=== PATIENT | female | born 1965 | race Caucasian/White ===

== ENCOUNTER 2017-05-02 15:42 | Inpatient (IN) | payer MEDICAID, OTHER ==
[2017-05-02 15:55] VITALS: BMI 31.8
[2017-05-02] MEDS ORDERED: DiphenhydrAMINE 50 mg/ml Inj IVP STA (16:59)
[2017-05-02 17:15] LABS: BASO % 0.4 % (0.0-2.0); EOS # 0.2 K/uL (0.0-0.7); EOS % 2.8 % (0.0-4.0); HEMOGLOBIN 13.7 g/dL (12.0-16.0); LYMPH # 1.6 K/uL (1.0-4.3); LYMPH % 26.8 % (20.0-40.0); MEAN CORPUSCULAR HEMOGLOBIN 28.3 pg (27.0-31.0); MEAN CORPUSCULAR HGB CONC 32.6 g/dL (33.0-37.0); MEAN PLATELET VOLUME 9.7 fl (7.2-11.7); MONO # 0.4 K/uL (0.0-0.8); MONO % 6.4 % (0.0-10.0); NEUT # 3.7 K/uL (1.8-7.0); NEUT % 63.6 % (50.0-75.0); NRBC % 0.3 % (0.0-0.0); RBC 4.83 Mil/uL (3.80-5.20); RED CELL DISTRIBUTION WIDTH 14.4 % (11.5-14.5); WHITE BLOOD COUNT 5.8 K/uL (4.8-10.8)
[2017-05-02] MEDS ORDERED: DiphenhydrAMINE 50 mg/ml Inj ONE (17:25)
[2017-05-02 17:27] LABS: ALB/GLOB RATIO 1.1 (1.0-2.1); ALBUMIN 4.4 g/dL (3.5-5.0); ALT/SGPT 52 U/L (9-52); AST/SGOT 29 U/L (14-36); BLOOD UREA NITROGEN 18 mg/dl (7-17); CALCIUM 9.8 mg/dL (8.4-10.2); GFR AFRICAN-AMERICAN > 60; GFR NON-AFRICAN AMERICAN > 60
--- NOTE | 2017-05-02 17:32 | ED PDOC ---
HPI: Headache Time Seen by Provider: 05/02/17 16:06 Chief Complaint (Nursing): Headache Chief Complaint (Provider): Headache History Per: Patient History/Exam Limitations: no limitations Onset/Duration Of Symptoms: Days (x1 month), Worse Since Current Symptoms Are (Timing): Still Present Quality: Other (throbbing) Preceeding Symptoms: None Additional Complaint(s): 51 year old female with past medical history of pituitary resection presents to the emergency department complaining of headache x1 month. Patient states that the headache is worsening and is associated with fever, chills, bilateral arm paresthesias and shortness of breath. She reports that her pain is similar to when she was diagnosed with a pituitary tumor 2 years ago. Patient reports she had surgery at [facility] and has not experienced any symptoms since then. She further states that she has not followed up with with a neurosurgeon nor endocrine since a few months after her surgery was performed. PMD: [facility] Past Medical History Reviewed: Historical Data, Nursing Documentation, Vital Signs Vital Signs: Last Vital Signs Temp 98.3 F 05/02/17 15:55 Pulse 70 05/02/17 15:55 Resp 16 05/02/17 15:55 BP 150/88 05/02/17 15:55 Pulse Ox 100 05/02/17 15:55 - Medical History PMH: Diverticulitis, Gastritis Denies: HIV, Chronic Kidney Disease - Surgical History Other surgeries: pituitary resection - Family History Family History: States: Hypertension - Social History Current smoker - smoking cessation education provided: No Ex-Smoker (has not smoked in the last 12 months): No Alcohol: None Drugs: Denies - Home Medications Home Medications: Ambulatory Orders Medication Instructions Recorded No Known Home Med 05/02/17 - Allergies Allergies/Adverse Reactions: Allergies Allergy/AdvReac Type Severity Reaction Status Date / Time levofloxacin [From Levaquin] Allergy RASH Verified 09/12/15 09:37 Penicillins Allergy RASH Verified 09/12/15 09:37 Review of Systems ROS Statement: Except As Marked, All Systems Reviewed And Found Negative Constitutional: Positive for: Chills Cardiovascular: Positive for: Palpitations Respiratory: Positive for: Shortness of Breath (occasional) Gastrointestinal: Positive for: Nausea Neurological: Positive for: Headache, Other (bilateral arm paresthesias) Physical Exam - Reviewed Nursing Documentation Reviewed: Yes Vital Signs Reviewed: Yes - Physical Exam Appears: Positive for: Uncomfortable, In Acute Distress (mild painful) Head Exam: Positive for: ATRAUMATIC, NORMOCEPHALIC Skin: Positive for: Warm, Dry Eye Exam: Positive for: EOMI, PERRL, Conjunctival injection ENT: Negative for: Pharyngeal Erythema, Tonsillar Exudate Neck: Positive for: Painless ROM, Supple Cardiovascular/Chest: Positive for: Regular Rate, Rhythm. Negative for: Murmur Respiratory: Positive for: Normal Breath Sounds. Negative for: Wheezing Gastrointestinal/Abdominal: Positive for: Soft. Negative for: Tenderness Back: Positive for: Normal Inspection. Negative for: Muscle Spasm Extremity: Positive for: Normal ROM. Negative for: Deformity Lymphatic: Negative for: Adenopathy Neurologic/Psych: Positive for: Alert, r&d lab technician II-XII (intact), Oriented (x3), Cerebellar Tests (normal FTN), Gait (normal). Negative for: Motor/Sensory Deficits, Aphasia, Facial Droop - Laboratory Results Result Diagrams: 05/02/17 17:00 05/02/17 17:00 - ECG O2 Sat by Pulse Oximetry: 100 (RA) Medical Decision Making Medical Decision Makin Initial Impression 51 year old female presenting with headache with hx of pituitary mass Differential: Recurrent pituitary tumor, tension headache, dehydration, electrolyte abnormality, migraine, sinusitis. Initial Plan: * CT Head w/o Contrast * CMP * Drug Screen * free T4 * FSH * FT3 * luteinizing hormone * Magnesium * Phosphorous * Prolactin * T3 * T4 * TSH * Upreg * Udip * CBC * partial thromboplastin * Prothrombin time * ACTH, Plasma * Growth hormone * Benadryl 25mg IVP * Reglan 10mg IV * Urine Culture * Urinalysis * Reevaluation 2011 EXAM: CT Head Without Intravenous Contrast CLINICAL HISTORY: 51 years old, female; Pain; Headache; Other: H/o pituitary tumor. Post surgery 2016; Prior surgery; Surgery date: 6+ months; Additional info: Headache h/o pituitary tumor post surg 2016 TECHNIQUE: Axial computed tomography images of the head/brain without intravenous contrast. All CT scans at this facility use one or more dose reduction techniques, viz.: automated exposure control; ma/kV adjustment per patient size (including targeted exams where dose is matched to indication; i.e. head); or iterative reconstruction technique. Coronal and sagittal reformatted images were created and reviewed. COMPARISON: CT HEAD OR BRAIN W/O CONT 2013-07-11 12:28 FINDINGS: Brain: No hemorrhage. No significant white matter disease. No edema. Ventricles: No hydrocephalus. Bones: Skull is intact. Sinuses: Opacification of posterior ethmoid air cells and sphenoid sinus with chronic periosteal changes. Opacification extends into the nasopharynx. Mastoid air cells: No mastoid effusion. IMPRESSION: Opacification of posterior ethmoid air cells and sphenoid sinus with chronic periosteal changes. Opacification extends into the nasopharynx. Followup sinus CT recommended for further evaluation. Cannot exclude underlying mass 2031 Labs unremarkable. DW pt findings. Given history pt still needs workup for possible enlarging pituitary gland and intractable headache. Discussed findings with patent to be admitted for intractable headache and continued evaluation including MRI. Case discussed with family practice resident. Documented by Janelle Garcia acting as a scribe for Angelika Gipson MD. All medical record entries made by the Scribe were at my direction and personally dictated by me. I have reviewed the chart and agree that the record accurately reflects my personal performance of the history, physical exam, medical decision making, and the department course for this patient. I have also personally directed, reviewed, and agree with the discharge instructions and disposition. Disposition - Clinical Impression Clinical Impression: Headache Counseled Patient/Family Regarding: Studies Performed, Diagnosis - Disposition Disposition Time: 20:30 Condition: FAIR - Pt Status Changed To: Hospital Disposition Of: Inpatient - Admit Certification Admit to Inpatient:: After my assessment, the patient will require hospitalization for at least two midnights. This is because of the severity of symptoms shown, intensity of services needed, and/or the medical risk in this patient being treated as an outpatient. - POA Present On Arrival: None
[2017-05-02 17:41] LABS: SQUAMOUS EPITHIAL 1 /hpf (0-5); URINE BACTERIA RARE (<OCC); URINE BILIRUBIN NEGATIVE (NEGATIVE); URINE BLOOD NEGATIVE (NEGATIVE); URINE CLARITY CLEAR (Clear); URINE COLOR YELLOW (YELLOW); URINE GLUCOSE (UA) NEG (Normal); URINE LEUKOCYTE ESTERASE SMALL Leu/uL (Negative); URINE PROTEIN NEGATIVE (NEGATIVE); URINE UROBILINOGEN 0.2-1.0 mg/dL (0.2-1.0)
[2017-05-02 17:44] LABS: FSH 31.1 mIU/mL; T4 7.22 ug/dl (5.5-11.0)
[2017-05-02 17:51] LABS: PARTIAL THROMBOPLASTIN TIME 34.5 Seconds (25.6-37.1); PROTHROMBIN TIME 11.5 Seconds (9.8-13.1)
[2017-05-02 17:54] LABS: BARBITURATES, UR NEGATIVE (NEGATIVE); BENZODIAZEPINES, UR NEGATIVE (NEGATIVE); OPIATES, UR NEGATIVE (NEGATIVE); PHENCYCLIDINE, UR NEGATIVE (NEGATIVE)
[2017-05-02 17:58] LABS: T3 1.27 nmol/L (1.49-2.60)
--- NOTE | 2017-05-02 20:12 | CT ---
EXAM: CT Head Without Intravenous Contrast CLINICAL HISTORY: 51 years old, female; Pain; Headache; Other: H/o pituitary tumor. Post surgery 2016; Prior surgery; Surgery date: 6+ months; Additional info: Headache h/o pituitary tumor post surg 2016 TECHNIQUE: Axial computed tomography images of the head/brain without intravenous contrast. All CT scans at this facility use one or more dose reduction techniques, viz.: automated exposure control; ma/kV adjustment per patient size (including targeted exams where dose is matched to indication; i.e. head); or iterative reconstruction technique. Coronal and sagittal reformatted images were created and reviewed. COMPARISON: CT HEAD OR BRAIN W/O CONT 2013-07-11 12:28 FINDINGS: Brain: No hemorrhage. No significant white matter disease. No edema. Ventricles: No hydrocephalus. Bones: Skull is intact. Sinuses: Opacification of posterior ethmoid air cells and sphenoid sinus with chronic periosteal changes. Opacification extends into the nasopharynx. Mastoid air cells: No mastoid effusion. IMPRESSION: Opacification of posterior ethmoid air cells and sphenoid sinus with chronic periosteal changes. Opacification extends into the nasopharynx. Followup sinus CT recommended for further evaluation. Cannot exclude underlying mass
--- NOTE | 2017-05-02 21:57 | CP.PCM.HP ---
History of Present Illness - History of Present Illness History of Present Illness: Hx taken from patient PMD: [facility] 51 y/o F with PMHx of Pituitary tumor, surgically removed 2 y/a at [facility] for what patient never followed up after Sx, presented to ED c/ o headache similar to previously tumor related headache. As per patient she was headache free after Sx until 4 month ago, located to top of the head with no radiation but the sensation of "facial swelling" sometimes. Denies loss of peripheral vision or diplopia, denies nipple discharge. Menses [id number] after Sx and was with amenorrhea for 10 years before tumor removal. She is not on any meds at home and states that for headaches the only med that make it better is Ibuprofen 800mg. Denies vomiting but admits nausea and hypersensitive hearing. As per patient she had a "cold" that is resolved, c/o rhinorrhea when she moves her head down "that she feels is coming from her frontal area to nose but never comes out". Denies trauma. Afebrile. Denies CP, palpitations, SOB, abd pain. Admits constipation. ED course: CBC/CMP unremarkable CT Head: Opacification of posterior ethmoid air cells and sphenoid sinus with chronic periosteal changes. Opacification extends into the nasopharynx. Followup sinus CT recommended for further evaluation. Cannot exclude underlying mass. UA: WBC 7, small LE UTox neg Benadryl/Reglan PMHx: Pituitary tumor SXhX: Pituitary tumor SHX: Denies x3 FHx: Unknown Allergies: PCN, Levaquin Full code Present on Admission - Present on Admission Any Indicators Present on Admission: No Review of Systems - Review of Systems All systems: reviewed and no additional remarkable complaints except (Those described on HPI) Past Patient History - Infectious Disease Hx of Infectious Diseases: None - Past Medical History & Family History Past Medical History?: Yes - Past Social History Alcohol: None Drugs: Denies - CARDIAC Hx Cardiac Disorders: No - PULMONARY Hx Respiratory Disorders: No - NEUROLOGICAL Hx Neurological Disorder: Yes Other/Comment: Pituitary tumor - HEENT Hx HEENT Problems: No - RENAL Hx Chronic Kidney Disease: No - ENDOCRINE/METABOLIC Hx Endocrine Disorders: Yes - HEMATOLOGICAL/ONCOLOGICAL Hx Blood Disorders: No Hx Human Immunodeficiency Virus (HIV): No - INTEGUMENTARY Hx Dermatological Problems: No - MUSCULOSKELETAL/RHEUMATOLOGICAL Hx Falls: No - GASTROINTESTINAL Hx Diverticulitis: Yes Hx Gastritis: Yes - GENITOURINARY/GYNECOLOGICAL Hx Reproductive Disorders: Yes (Fibroids) Other/Comment: Fibroids LMP:: 4 M/A - PSYCHIATRIC Hx Psychophysiologic Disorder: No Hx Substance Use: No - SURGICAL HISTORY Hx Surgeries: Yes Other/Comment: pituitary tumor surgery - ANESTHESIA Hx Anesthesia: Yes Hx Anesthesia Reactions: No Hx Malignant Hyperthermia: No Meds Allergies/Adverse Reactions: Allergies Allergy/AdvReac Type Severity Reaction Status Date / Time levofloxacin [From Levaquin] Allergy RASH Verified 09/12/15 09:37 Penicillins Allergy RASH Verified 09/12/15 09:37 Physical Exam - Constitutional Appears: Non-toxic, No Acute Distress - Head Exam Head Exam: ATRAUMATIC, NORMAL INSPECTION - Eye Exam Eye Exam: EOMI, Normal appearance, PERRL. absent: Nystagmus, Periorbital tenderness - ENT Exam ENT Exam: Mucous Membranes Moist, Normal Oropharynx Additional comments: Tenderness over frontal sinus area - Neck Exam Neck exam: Positive for: Full Rom, Normal Inspection. Negative for: Tenderness , Thyromegaly - Respiratory Exam Respiratory Exam: Clear to Auscultation Bilateral, NORMAL BREATHING PATTERN. absent: Decreased Breath Sounds, Rales, Rhonchi, Wheezes, Respiratory Distress - Cardiovascular Exam Cardiovascular Exam: REGULAR RHYTHM, +S1, +S2. absent: Gallop, Systolic Murmur - GI/Abdominal Exam GI & Abdominal Exam: Normal Bowel Sounds, Soft. absent: Distended, Firm, Mass, Rebound, Rigid, Tenderness - Extremities Exam Extremities exam: Positive for: normal capillary refill, normal inspection, pedal pulses present. Negative for: calf tenderness, joint swelling, pedal edema, tenderness - Neurological Exam Neurological exam: Alert, CN II-XII Intact, Normal Gait, Oriented x3 - Psychiatric Exam Psychiatric exam: Normal Affect, Normal Mood - Skin Skin Exam: Normal Color, Warm Results - Vital Signs Recent Vital Signs: Last Vital Signs Temp 98.5 F 05/02/17 21:20 Pulse 74 05/02/17 21:20 Resp 16 05/02/17 21:20 BP 120/77 05/02/17 21:20 Pulse Ox 100 05/02/17 21:33 - Labs Result Diagrams: 05/02/17 17:00 05/02/17 17:00 Labs: Laboratory Results - last 24 hr 05/02/1718 05/02/17 17:00 17:00 17:00 WBC 5.8 RBC 4.83 Hgb 13.7 Hct 42.0 MCV 87.0 MCH 28.3 MCHC 32.6 L RDW 14.4 Plt Count 187 MPV 9.7 Neut % (Auto) 63.6 Lymph % (Auto) 26.8 [place] % (Auto) 6.4 Eos % (Auto) 2.8 Baso % (Auto) 0.4 Neut # (Auto) 3.7 Lymph # (Auto) 1.6 [place] # (Auto) 0.4 Eos # (Auto) 0.2 Baso # (Auto) 0.0 PT INR APTT Sodium 144 Potassium 4.1 Chloride 105 Carbon Dioxide 27 Anion Gap 16 BUN 18 H Creatinine 0.6 L Est GFR ( Amer) > 60 Est GFR (Non-Af Amer) > 60 Random Glucose 107 H Calcium 9.8 Phosphorus 3.8 Magnesium 2.2 Total Bilirubin 0.6 AST 29 ALT 52 D Alkaline Phosphatase 72 Total Protein 8.4 H Albumin 4.4 Globulin 4.0 H Albumin/Globulin Ratio 1.1 Free T4 0.81 Thyroxine (T4) 7.22 Total T3 1.27 L TSH 3rd Generation 0.99 FSH 3rd Generation 31.1 Luteinizing Hormone 16.3 Urine Color Urine Clarity Urine pH Ur Specific [place] Urine Protein Urine Glucose (UA) Urine Ketones Urine Blood Urine Nitrate Urine Bilirubin Urine Urobilinogen Ur Leukocyte Esterase Urine RBC (Auto) Urine Microscopic WBC Ur Squamous Epith Cells Urine Bacteria Urine Opiates Screen Urine Methadone Screen Ur Barbiturates Screen Ur Phencyclidine Scrn Ur Amphetamines Screen U Benzodiazepines Scrn U Oth Cocaine Metabols U Cannabinoids Screen 05/02/17 05/02/17 05/02/17 17:00 17:28 17:28 WBC RBC Hgb Hct MCV MCH MCHC RDW Plt Count MPV Neut % (Auto) Lymph % (Auto) [place] % (Auto) Eos % (Auto) Baso % (Auto) Neut # (Auto) Lymph # (Auto) [place] # (Auto) Eos # (Auto) Baso # (Auto) PT 11.5 INR 1.0 APTT 34.5 Sodium Potassium Chloride Carbon Dioxide Anion Gap BUN Creatinine Est GFR ( Amer) Est GFR (Non-Af Amer) Random Glucose Calcium Phosphorus Magnesium Total Bilirubin AST ALT Alkaline Phosphatase Total Protein Albumin Globulin Albumin/Globulin Ratio Free T4 Thyroxine (T4) Total T3 TSH 3rd Generation FSH 3rd Generation Luteinizing Hormone Urine Color Yellow Urine Clarity Clear Urine pH 6.0 Ur Specific [place] 1.016 Urine Protein Negative Urine Glucose (UA) Neg Urine Ketones Negative Urine Blood Negative Urine Nitrate Negative Urine Bilirubin Negative Urine Urobilinogen 0.2-1.0 Ur Leukocyte Esterase Small Urine RBC (Auto) 1 Urine Microscopic WBC 7 H Ur Squamous Epith Cells 1 Urine Bacteria Rare Urine Opiates Screen Negative Urine Methadone Screen Negative Ur Barbiturates Screen Negative Ur Phencyclidine Scrn Negative Ur Amphetamines Screen Negative U Benzodiazepines Scrn Negative U Oth Cocaine Metabols Negative U Cannabinoids Screen Negative Assessment & Plan - Assessment and Plan (Free Text) Assessment: 51 y/o with Hx of pituitary tumors admitted for intractable headache. Intractable headache -R/O Head mass -Chronic Sinusitis? -CT head: Opacification of posterior ethmoid air cells and sphenoid sinus with chronic periosteal changes. Opacification extends into the nasopharynx. Followup sinus CT recommended for further evaluation. Cannot exclude underlying mass -4 month Hx of headaches with nausea, hypersensitive hearing -C/O Rhinorrhea -Ibuprofen 800 mg PRN q8h for headache -Zofran PRN for nausea/vomiting -F/U pituitary hormones, TSH, FT4 -Normal saline nasal q6h -Consider CT Sinus w/o contrast and MRI of the brain w/contrast to further r/o evaluate poss differentials. DVT prophylaxis Lovenox 40 mg daily
[2017-05-02] MEDS: Nasal Spray(Ocean spray) NAS SCH (23:25)
[2017-05-03] MEDS: Nasal Spray(Ocean spray) NAS SCH ×4 (04:48→22:25)
[2017-05-03] MEDS: Enoxaparin 40 mg Syringe SC SCH (08:43)
--- NOTE | 2017-05-03 12:15 | CP.PCM.DIS ---
Provider - Provider Date of Admission: 05/02/17 21:01 Attending physician: Janice Mccormick MD Hospital Course - Lab Results Lab Results: Micro Results 05/02/17 17:28 Urine Urine Culture - Preliminary No growth. Most Recent Lab Values WBC 5.8 K/uL (4.8-10.8) 05/02/17 17:00 RBC 4.83 Mil/uL (3.80-5.20) 05/02/17 17:00 Hgb 13.7 g/dL (12.0-16.0) 05/02/17 17:00 Hct 42.0 % (34.0-47.0) 05/02/17 17:00 MCV 87.0 fl (81.0-99.0) 05/02/17 17:00 MCH 28.3 pg (27.0-31.0) 05/02/17 17:00 MCHC 32.6 g/dL (33.0-37.0) L 05/02/17 17:00 RDW 14.4 % (11.5-14.5) 05/02/17 17:00 Plt Count 187 K/uL (130-400) 05/02/17 17:00 MPV 9.7 fl (7.2-11.7) 05/02/17 17:00 Neut % (Auto) 63.6 % (50.0-75.0) 05/02/17 17:00 Lymph % (Auto) 26.8 % (20.0-40.0) 05/02/17 17:00 [place] % (Auto) 6.4 % (0.0-10.0) 05/02/17 17:00 Eos % (Auto) 2.8 % (0.0-4.0) 05/02/17 17:00 Baso % (Auto) 0.4 % (0.0-2.0) 05/02/17 17:00 Neut # (Auto) 3.7 K/uL (1.8-7.0) 05/02/17 17:00 Lymph # (Auto) 1.6 K/uL (1.0-4.3) 05/02/17 17:00 [place] # (Auto) 0.4 K/uL (0.0-0.8) 05/02/17 17:00 Eos # (Auto) 0.2 K/uL (0.0-0.7) 05/02/17 17:00 Baso # (Auto) 0.0 K/uL (0.0-0.2) 05/02/17 17:00 PT 11.5 Seconds (9.8-13.1) 05/02/17 17:00 INR 1.0 (0.9-1.2) 05/02/17 17:00 APTT 34.5 Seconds (25.6-37.1) 05/02/17 17:00 Sodium 144 mmol/l (132-148) 05/02/17 17:00 Potassium 4.1 MMOL/L (3.6-5.0) 05/02/17 17:00 Chloride 105 mmol/L (98-107) 05/02/17 17:00 Carbon Dioxide 27 mmol/L (22-30) 05/02/17 17:00 Anion Gap 16 (10-20) 05/02/17 17:00 BUN 18 mg/dl (7-17) H 05/02/17 17:00 Creatinine 0.6 mg/dl (0.7-1.2) L 05/02/17 17:00 Est GFR ( Amer) > 60 05/02/17 17:00 Est GFR (Non-Af Amer) > 60 05/02/17 17:00 Random Glucose 107 mg/dL (65-105) H 05/02/17 17:00 Calcium 9.8 mg/dL (8.4-10.2) 05/02/17 17:00 Phosphorus 3.8 mg/dl (2.5-4.5) 05/02/17 17:00 Magnesium 2.2 MG/DL (1.6-2.3) 05/02/17 17:00 Total Bilirubin 0.6 mg/dl (0.2-1.3) 05/02/17 17:00 AST 29 U/L (14-36) 05/02/17 17:00 ALT 52 U/L (9-52) D 05/02/17 17:00 Alkaline Phosphatase 72 U/L (38-126) 05/02/17 17:00 Total Protein 8.4 G/DL (6.3-8.2) H 05/02/17 17:00 Albumin 4.4 g/dL (3.5-5.0) 05/02/17 17:00 Globulin 4.0 gm/dL (2.2-3.9) H 05/02/17 17:00 Albumin/Globulin Ratio 1.1 (1.0-2.1) 05/02/17 17:00 Free T4 0.81 ng/dL (0.78-2.19) 05/02/17 17:00 Thyroxine (T4) 7.22 ug/dl (5.5-11.0) 05/02/17 17:00 Total T3 1.27 nmol/L (1.49-2.60) L 05/02/17 17:00 TSH 3rd Generation 0.99 mIU/ML (0.46-4.68) 05/02/17 17:00 FSH 3rd Generation 31.1 mIU/mL 05/02/17 17:00 Luteinizing Hormone 16.3 mIU/ml 05/02/17 17:00 Urine Color Yellow (YELLOW) 05/02/17 17:28 Urine Clarity Clear (Clear) 05/02/17 17:28 Urine pH 6.0 (5.0-8.0) 05/02/17 17:28 Ur Specific [place] 1.016 (1.003-1.030) 05/02/17 17:28 Urine Protein Negative mg/dL (NEGATIVE) 05/02/17 17:28 Urine Glucose (UA) Neg mg/dL (Normal) 05/02/17 17:28 Urine Ketones Negative mg/dL (NEGATIVE) 05/02/17 17:28 Urine Blood Negative (NEGATIVE) 05/02/17 17:28 Urine Nitrate Negative (NEGATIVE) 05/02/17 17:28 Urine Bilirubin Negative (NEGATIVE) 05/02/17 17:28 Urine Urobilinogen 0.2-1.0 mg/dL (0.2-1.0) 05/02/17 17:28 Ur Leukocyte Esterase Small [place]/uL (Negative) 05/02/17 17:28 Urine RBC (Auto) 1 /hpf (0-3) 05/02/17 17:28 Urine Microscopic WBC 7 /hpf (0-5) H 05/02/17 17:28 Ur Squamous Epith Cells 1 /hpf (0-5) 05/02/17 17:28 Urine Bacteria Rare (<OCC) 05/02/17 17:28 Urine Opiates Screen Negative (NEGATIVE) 05/02/17 17:28 Urine Methadone Screen Negative (NEGATIVE) 05/02/17 17:28 Ur Barbiturates Screen Negative (NEGATIVE) 05/02/17 17:28 Ur Phencyclidine Scrn Negative (NEGATIVE) 05/02/17 17:28 Ur Amphetamines Screen Negative (NEGATIVE) 05/02/17 17:28 U Benzodiazepines Scrn Negative (NEGATIVE) 05/02/17 17:28 U Oth Cocaine Metabols Negative (NEGATIVE) 05/02/17 17:28 U Cannabinoids Screen Negative (NEGATIVE) 05/02/17 17:28 Discharge Exam - Head Exam Head Exam: ATRAUMATIC, NORMAL INSPECTION Discharge Plan - Follow Up Plan Condition: FAIR Disposition: HOME/ ROUTINE
--- NOTE | 2017-05-03 12:15 | CP.PCM.PN ---
Subjective - Date & Time of Evaluation Date of Evaluation: 05/03/17 Time of Evaluation: 10:00 - Subjective Subjective: Pt seen and evaluated in the am. Reports nasal congestions. Denies any new headaches. Reports that she is comfortable. Denies blurry vision, [place], vomiting, weakness or numbness. Tolerating diet Discussed plan with patient. Objective - Vital Signs/Intake and Output Vital Signs (last 24 hours): Temp Pulse Resp BP Pulse Ox 98.3 F 72 18 111/71 97 05/03/17 07:34 05/03/17 07:34 05/03/17 07:34 05/03/17 07:34 05/03/17 07:34 - Medications Medications: Current Medications Docusate Sodium (Colace) 100 mg PO BID [facility] Last Admin: 05/03/17 08:42 Dose: 100 mg Enoxaparin Sodium (Lovenox) 40 mg SC DAILY [facility] PRN Reason: Protocol Last Admin: 05/03/17 08:43 Dose: 40 mg Fluticasone Propionate (Flonase) 1 spr TED BID [facility] Last Admin: 05/03/17 08:43 Dose: 1 spr Ibuprofen (Motrin Tab) 800 mg PO Q8 PRN PRN Reason: Headache Ondansetron HCl (Zofran Inj) 4 mg IVP Q6 PRN PRN Reason: Nausea/Vomiting Sodium Chloride ([place] Nasal [place]) 1 sprays TED Q6H [facility] Last Admin: 05/03/17 04:48 Dose: Not Given - Labs Labs: 05/02/17 17:00 05/02/17 17:00 PT 11.5 Seconds (9.8-13.1) 05/02/17 17:00 INR 1.0 (0.9-1.2) 05/02/17 17:00 APTT 34.5 Seconds (25.6-37.1) 05/02/17 17:00 - Constitutional Appears: Well, Non-toxic, No Acute Distress - Head Exam Head Exam: ATRAUMATIC Additional comments: Occipital tenderness with mild palpable mass. - Eye Exam Eye Exam: EOMI, Normal appearance. absent: Nystagmus, Periorbital swelling, Periorbital tenderness Pupil Exam: PERRL - ENT Exam ENT Exam: Mucous Membranes Moist, Normal External Ear Exam Additional comments: Maxillary sinus tenderness - Neck Exam Neck Exam: Normal Inspection. absent: Tenderness, Thyromegaly - Respiratory Exam Respiratory Exam: Clear to Ausculation Bilateral. absent: Rales, Wheezes - Cardiovascular Exam Cardiovascular Exam: REGULAR RHYTHM, +S1, +S2. absent: Murmur - GI/Abdominal Exam GI & Abdominal Exam: Soft. absent: Tenderness - Neurological Exam Neurological Exam: Alert, Awake, Oriented x3 - Psychiatric Exam Psychiatric exam: Normal Affect - Skin Skin Exam: Normal Color Assessment and Plan - Assessment and Plan (Free Text) Assessment: 51 y/o with Hx of pituitary tumors admitted for intractable headache. Intractable headache -Possible Pituitary tumor vs Sinusitis -CT head: Opacification of posterior ethmoid air cells and sphenoid sinus with chronic periosteal changes. Opacification extends into the nasopharynx. Followup sinus CT recommended for further evaluation. Cannot exclude underlying mass -4 month Hx of headaches with nausea, hypersensitive hearing -C/O Rhinorrhea -Ibuprofen 800 mg PRN q8h for headache -Zofran PRN for nausea/vomiting -F/U pituitary hormones, TSH, FT4, prolactin -Normal saline nasal q6h -F/U CT Sinus w/o contrast and MRI of the brain w/contrast to further r/o evaluate poss differentials. -Endocrinology Consult, Dr. Bains -Neurology Consult, Dr. Armstrong DVT prophylaxis Lovenox 40 mg daily
--- NOTE | 2017-05-03 14:53 | CON ---
DATE: ENDOCRINOLOGY CONSULTATION LOCATION: Room 653. HISTORY OF PRESENT ILLNESS: This is a 51-year-old female with known history of pituitary adenoma and underwent a surgical resection removal about 2 years ago at [facility] and presents here with one month history of progressively worsening dizziness, lightheadedness, and bifrontal headaches. She also has easy fatigability and tiredness with suboptimal energy level. PAST MEDICAL HISTORY: As mentioned above. She has known history of pituitary adenoma and underwent surgical resection and removal at [facility] with the exact details that are not known at this time and are yet to be obtained as noted. History of protracted and prolonged daily bifrontal temporal headaches with visual blurring and recent apparent facial swelling as noted, also amenorrhea for over 10 years even prior to the removal of the pituitary adenoma. FAMILY HISTORY: Possible hypertension and heart disease. SOCIAL HISTORY: The patient has supportive family. No known substance use. REVIEW OF SYSTEMS: As mentioned above. Admits to generalized body weakness with repeated MRI readings with no apparent recurrence, although admits to having had no recent checkups both laboratory and radiologic imaging in the last year or so prior to admission. Admits to bifrontal temporal headaches with visual blurring, episodic dizziness and lightheadedness, worsened on the day of admission. No chest pains or palpitations or PND. Oral intake has been variable with nausea, dyspepsia, and vague upper abdominal pain, also admits to upper extremity paresthesias, but the lower extremities are fine, otherwise. She has occasional lumbosacral pain as noted. PHYSICAL EXAMINATION: GENERAL: This is an average built female, in no apparent distress. VITAL SIGNS: Blood pressure of 140/80, pulse of 70 beats per minute and regular, temperature 98, respirations 20, height is 5 feet, and weight is 163 pounds. HEENT: Head is normocephalic. Eyes; anicteric with pink conjunctivae. Funduscopy not possible at this time. Ears, nose, and throat otherwise normal. NECK: Supple. Thyroid gland is normal in size. No carotid bruits or any cervical adenopathy. CARDIOPULMONARY: Adynamic precordium. S1 and S2 is rapid and regular. LUNGS: Clear to auscultation. ABDOMEN: Flat and soft with positive bowel sounds. EXTREMITIES: No peripheral edema. Pulses are +2 bilaterally. LABORATORY DATA: The prolactin level is still pending at this time. The luteinizing hormone is 16. FSH is 31.1. TSH is 0.99 with T4 of 7.22. Chemistries; BUN of 18, sodium of 144, potassium of 4.1, chloride of 105, CO2 of 27, glucose of 107, and creatinine of 0.6. ASSESSMENT: This is a 51-year-old female with severe headaches and associated upper extremity paresthesias, but no overt visual changes at this time as noted. She has significant history of pituitary adenoma resection at the [facility] with no subsequent followup of x-rays and/or hormonal testing as noted. Most microadenoma and/or prolactinoma are minute and small and would actually not even require surgical resection such as a transsphenoidal resection, but only the macroadenoma would require surgical intervention especially if there is any compressive and/or obstructive manifestations. PLAN OF MANAGEMENT: We will await prolactin level as this is the most modifiable factor, which is elevated with require of bromocriptine or cabergoline medications as indicated. If ever prolactin level is normal, we would request a more x-ray testing with an MRI of the pituitary with gadolinium contrast area. Symptomatic and supportive measures would be recommended for pain management, but intensive hormonal management will not require the aforementioned unless history of hyperfunctioning adenoma. A serum cortisol and ACTH and growth hormone levels will be obtained as ordered. We will obtain serial chemistries and supplement accordingly as needed. Edna Bains MD
--- NOTE | 2017-05-03 16:19 | CT ---
PROCEDURE: CT scan sinuses dated 05/03/2017 HISTORY: Headache. COMPARISON: Comparison made with CT scan brain 05/02/2017 TECHNIQUE: Contiguous helical/transaxial CT images of the paranasal sinuses were obtained. Coronal and sagittal reformats were generated. Radiation dose: Total exam DLP = 816.79 mGy-cm. This CT exam was performed using one or more of the following dose reduction techniques: Automated exposure control, adjustment of the mA and/or kV according to patient size, and/or use of iterative reconstruction technique. Findings: The current study demonstrates complete opacification of the sphenoid sinus with destructive changes of many of the posterior ethmoid septations. ,. In addition, there appears to localized dehiscence of a short segment of the posterior superior aspect of wall-roof of the sphenoid sinus/anterior wall/floor of the sella turcica. There is surrounding thickening and sclerosis of the posterolateral avalos of the sphenoid sinus as well. . There is extension of opacification into the inferiorly into the superior aspect of the nasopharynx with slight extension into anteriorly into the posterior nasal cavities. It is unclear whether the changes are related to chronic sinusitis, nasal polyps a soft tissue mass with chronic erosive/destructive changes. Minor mucosal thickening seen within several anterior ethmoid air cells and right maxillary antrum. Impression: The soft tissue fills the sphenoid sinus at and extends anteriorly with destructive changes of multiple posterior ethmoid septations and opacification of many of the posterior ethmoid air cells. . There is also apparent localized dehiscence of a short segment of the posterior superior roof of the sphenoid sinus/ floor anterior avalos sella turcica. Soft tissue extends into the posterior superior margin of the nasopharynx and partially into the posterior margins of the nasal cavities. Rule out chronic sinusitis, nasal polyps or other destructive soft tissue mass.
--- NOTE | 2017-05-03 19:01 | CP.PCM.CON ---
History of Present Illness - History of Present Illness History of Present Illness: Mrs. Sutton is a 51-year-old woman who had a pituitary mass resected two years ago and presented yesterday complaining of a headache that she has had for the last month. The headache is worsening and is associated with fever, chills, bilateral arm paresthesias and shortness of breath. CT head showed significant sinus disease. Currently, the headache is improved with ibuprofen, zofran and flonase. Pituitary hormone panel was ordered for further evaluation as well. Review of Systems - Review of Systems All systems: reviewed and no additional remarkable complaints except Past Patient History - Infectious Disease Hx of Infectious Diseases: None - Past Medical History & Family History Past Medical History?: Yes - Past Social History Alcohol: None Drugs: Denies - CARDIAC Hx Cardiac Disorders: No - PULMONARY Hx Respiratory Disorders: No - NEUROLOGICAL Hx Neurological Disorder: Yes Other/Comment: Pituitary tumor - HEENT Hx HEENT Problems: No - RENAL Hx Chronic Kidney Disease: No - ENDOCRINE/METABOLIC Hx Endocrine Disorders: Yes - HEMATOLOGICAL/ONCOLOGICAL Hx Blood Disorders: No Hx Human Immunodeficiency Virus (HIV): No - INTEGUMENTARY Hx Dermatological Problems: No - MUSCULOSKELETAL/RHEUMATOLOGICAL Hx Falls: No - GASTROINTESTINAL Hx Diverticulitis: Yes Hx Gastritis: Yes - GENITOURINARY/GYNECOLOGICAL Hx Reproductive Disorders: Yes (Fibroids) Other/Comment: Fibroids LMP:: 4 M/A - PSYCHIATRIC Hx Psychophysiologic Disorder: No Hx Substance Use: No - SURGICAL HISTORY Hx Surgeries: Yes Other/Comment: pituitary tumor surgery - ANESTHESIA Hx Anesthesia: Yes Hx Anesthesia Reactions: No Hx Malignant Hyperthermia: No Meds Allergies/Adverse Reactions: Allergies Allergy/AdvReac Type Severity Reaction Status Date / Time levofloxacin [From Levaquin] Allergy RASH Verified 09/12/15 09:37 Penicillins Allergy RASH Verified 09/12/15 09:37 - Medications Medications: Current Medications Enoxaparin Sodium (Lovenox) 40 mg SC DAILY KIN PRN Reason: Protocol Last Admin: 05/03/17 08:43 Dose: 40 mg Fluticasone Propionate (Flonase) 1 spr TED BID KIN Last Admin: 05/03/17 16:52 Dose: 1 spr Ibuprofen (Motrin Tab) 800 mg PO Q8 PRN PRN Reason: Headache Ondansetron HCl (Zofran Inj) 4 mg IVP Q6 PRN PRN Reason: Nausea/Vomiting Last Admin: 05/03/17 15:25 Dose: 4 mg Sodium Chloride ([place] Nasal [place]) 1 sprays TED Q6H KIN Last Admin: 05/03/17 16:52 Dose: 1 sprays Physical Exam - Constitutional Appears: Well - Head Exam Head Exam: ATRAUMATIC, NORMAL INSPECTION, NORMOCEPHALIC - Eye Exam Eye Exam: EOMI, Normal appearance, PERRL - ENT Exam ENT Exam: Mucous Membranes Moist, Normal Exam - Cardiovascular Exam Cardiovascular Exam: REGULAR RHYTHM - GI/Abdominal Exam GI & Abdominal Exam: Normal Bowel Sounds, Soft. absent: Tenderness - Rectal Exam Rectal Exam: Deferred - Extremities Exam Extremities exam: Positive for: normal inspection - Neurological Exam Neurological exam: Alert, CN II-XII Intact, Normal Gait, Oriented x3, Reflexes Normal - Psychiatric Exam Psychiatric exam: Normal Affect, Normal Mood Results - Vital Signs Recent Vital Signs: Last Vital Signs Temp 98.2 F 05/03/17 16:51 Pulse 73 05/03/17 16:51 Resp 20 05/03/17 16:51 BP 120/74 05/03/17 16:51 Pulse Ox 96 05/03/17 16:51 - Labs Result Diagrams: 05/02/17 17:00 05/02/17 17:00 Labs: Laboratory Results - last 24 hr 05/02/17 17:00 Free T3 pg/mL 3.88 Assessment & Plan (1) Headache Assessment and Plan: Likely sinus disease associated; however, due to her history of pituitary tumor and the duration of the headache, I recommend an MRI of the brain with and without contrast for further evaluation. The patient should receive NSAIDS and supportive care for the pain. She seems to be improving for now. Thank you. Status: Acute Priority: High
[2017-05-03 19:10] LABS: PROLACTIN 21.5 ng/mL (3.0-18.9)
[2017-05-03 23:29] VITALS: RESP 18
[2017-05-04] MEDS: Nasal Spray(Ocean spray) NAS SCH ×4 (04:27→21:35)
[2017-05-04] MEDS: Enoxaparin 40 mg Syringe SC SCH (09:04)
[2017-05-04] MEDS ORDERED: Simethicone 40 mg/0.6 ml Liquid (30 ml) PO PRN (10:09)
--- NOTE | 2017-05-04 10:39 | CP.PCM.PN ---
Subjective - Date & Time of Evaluation Date of Evaluation: 05/04/17 Time of Evaluation: 10:34 - Subjective Subjective: Ms. Sutton was seen and examined at the bedside. She is alert, oriented in all spheres. She denies any headache, dizziness, lightheadedness, nause, or vomiting. She is able to follow simple commands. She claims of feeling anxious due to her impending MRI. There was no untoward events overnight. Objective - Vital Signs/Intake and Output Vital Signs (last 24 hours): Temp Pulse Resp BP Pulse Ox 98.3 F 73 18 104/68 98 05/04/17 07:49 05/04/17 07:49 05/04/17 07:49 05/04/17 07:49 05/04/17 07:49 - Medications Medications: Current Medications Bromocriptine Mesylate (Parlodel) 2.5 mg PO HS KIN Last Admin: 05/03/17 22:42 Dose: 2.5 mg Enoxaparin Sodium (Lovenox) 40 mg SC DAILY KIN PRN Reason: Protocol Last Admin: 05/04/17 09:04 Dose: 40 mg Fluticasone Propionate (Flonase) 1 spr TED BID KIN Last Admin: 05/04/17 09:02 Dose: 1 spr Ibuprofen (Motrin Tab) 800 mg PO Q8 PRN PRN Reason: Headache Last Admin: 05/03/17 20:27 Dose: 800 mg Ondansetron HCl (Zofran Inj) 4 mg IVP Q6 PRN PRN Reason: Nausea/Vomiting Last Admin: 05/04/17 06:13 Dose: 4 mg Simethicone (Mylicon Liq) 40 mg PO QID PRN PRN Reason: Flatulence Sodium Chloride ([place] Nasal [place]) 1 sprays TED Q6H KIN Last Admin: 05/04/17 04:27 Dose: Not Given - Labs Labs: 05/02/17 17:00 05/02/17 17:00 PT 11.5 Seconds (9.8-13.1) 05/02/17 17:00 INR 1.0 (0.9-1.2) 05/02/17 17:00 APTT 34.5 Seconds (25.6-37.1) 05/02/17 17:00 - Constitutional Appears: No Acute Distress - Head Exam Head Exam: NORMAL INSPECTION - Neurological Exam Neurological Exam: Alert, Awake, Oriented x3 Neuro motor strength exam: Left Upper Extremity: 5, Right Upper Extremity: 5, Left Lower Extremity: 5, Right Lower Extremity: 5 Additional comments: She is alert, oriented, follows simple commands. Assessment and Plan (1) Headache Assessment & Plan: Case discussed with Dr. Wright, continue all current medical regimen. Pending MRI of the brain with an order of Xanax. Status: Acute
--- NOTE | 2017-05-04 11:25 | CP.PCM.PN ---
Subjective - Date & Time of Evaluation Date of Evaluation: 05/04/17 Time of Evaluation: 08:00 - Subjective Subjective: Pt seen and examined at bedside in the am. Complains of substernal pressure, 9/10, like chest pain with radiation to left arm. States she feels very anxious and often gets this type of pain at home when she has anxiety. Reports palpitations. Denies sob or cough. Denies headache. Stat EKG and Troponin ordered, pt moved to Tele. Xanax x1 given Objective - Vital Signs/Intake and Output Vital Signs (last 24 hours): Temp Pulse Resp BP Pulse Ox 98.3 F 73 18 104/68 98 05/04/17 07:49 05/04/17 07:49 05/04/17 07:49 05/04/17 07:49 05/04/17 07:49 - Medications Medications: Current Medications Bromocriptine Mesylate (Parlodel) 2.5 mg PO HS KIN Last Admin: 05/03/17 22:42 Dose: 2.5 mg Enoxaparin Sodium (Lovenox) 40 mg SC DAILY KIN PRN Reason: Protocol Last Admin: 05/04/17 09:04 Dose: 40 mg Fluticasone Propionate (Flonase) 1 spr TED BID KIN Last Admin: 05/04/17 09:02 Dose: 1 spr Ibuprofen (Motrin Tab) 800 mg PO Q8 PRN PRN Reason: Headache Last Admin: 05/03/17 20:27 Dose: 800 mg Ondansetron HCl (Zofran Inj) 4 mg IVP Q6 PRN PRN Reason: Nausea/Vomiting Last Admin: 05/04/17 06:13 Dose: 4 mg Simethicone (Mylicon Liq) 40 mg PO QID PRN PRN Reason: Flatulence Sodium Chloride ([place] Nasal [place]) 1 sprays TED Q6H KIN Last Admin: 05/04/17 04:27 Dose: Not Given - Labs Labs: 05/02/17 17:00 05/02/17 17:00 PT 11.5 Seconds (9.8-13.1) 05/02/17 17:00 INR 1.0 (0.9-1.2) 05/02/17 17:00 APTT 34.5 Seconds (25.6-37.1) 05/02/17 17:00 - Constitutional Appears: Well, Non-toxic, No Acute Distress (pt seems uncomfortable) - Head Exam Head Exam: NORMAL INSPECTION - Eye Exam Eye Exam: Normal appearance - ENT Exam ENT Exam: Mucous Membranes Moist - Respiratory Exam Respiratory Exam: Chest Wall Tenderness, Clear to Ausculation Bilateral. absent : Decreased Breath Sounds (cp reproducible to palpation ), Rales, Wheezes, Stridor - Cardiovascular Exam Cardiovascular Exam: REGULAR RHYTHM, +S1, +S2. absent: Tachycardia, Gallop, Murmur - GI/Abdominal Exam GI & Abdominal Exam: Soft. absent: Distended, Tenderness - Extremities Exam Extremities Exam: Normal Inspection - Neurological Exam Neurological Exam: Alert, Awake, Oriented x3 - Psychiatric Exam Psychiatric exam: Anxious - Skin Skin Exam: Normal Color Assessment and Plan - Assessment and Plan (Free Text) Assessment: 51 y/o with Hx of pituitary tumors admitted for intractable headache. For Brain MRI today. Intractable headache -Pain controlled -Possible Pituitary tumor vs Sinusitis. Pituitary Hormones: TSH, FT4, T3 wnl. Prolactin borderline elevated. -CT head: Chronic sinus changes -Endocrinology Consult, Dr. Bains- pt started on Bromocriptine, Prolactin levels borderlin elevated. -Will f/u with Endocrine with regards to the continuation of Bromocriptine on discharge. -Neurology Consult, Dr. Wright- likely sinus disease, Brain MRI w/ and w/o contrast ordered -Ibuprofen 800 mg PRN q8h for headache -Zofran PRN for nausea/vomiting -Normal saline nasal q6h Chest Pain -In setting of anxiety. Pt states she often gets this pain when she feels anxious -EKG NSR -Troponin x1 normal -Likely anxiety related. Pt does not have significant cardiac hx or risk factors -Xanax x 1. Motrin x1 -Will monitor on Tele -On re-vealuation pt's pain subsided and she states she was calmer DVT prophylaxis Lovenox 40 mg daily
[2017-05-04] MEDS ORDERED: Sodium Chloride 0.9% 100 ML ONE (14:49)
[2017-05-04] MEDS ORDERED: Gadodiamide 287 MG/ML VIAL (15ML) IV ONE (14:49)
--- NOTE | 2017-05-04 16:17 | MRI ---
PROCEDURE: MRI BRAIN AND PITUITARY WITH AND WITHOUT CONTRAST HISTORY: headache and history of pituitary tumor COMPARISON: None. TECHNIQUE: Multiplanar, multisequence MR images of the pituitary glad were obtained, including high resolution sagittal T2 and dynamic, multiphasic contrast coronal T1 weighted images of the sellar turcica. FINDINGS: PITUITARY GLAND: No suspicious contrast enhancement pattern or gland enlargement. No mass, abnormal enhancement or signal abnormality. Infundibulum is slightly deviated toward the left distally. OPTIC CHIASM: Unremarkable. SUPRASELLAR CISTERN: Unremarkable. CAVERNOUS SINUSES: Unremarkable. BRAIN (LIMITED): Incomplete study of the entire brain. Within this limitation, no gross mass or mass effect. VENTRICLES: Unremarkable. No hydrocephalus. OTHER FINDINGS: None. IMPRESSION: Unremarkable pituitary MRI prior to and following intravenous contrast administration. Remainder of the brain as imaged otherwise appears unremarkable as well.
[2017-05-04] MEDS: guaiFENesin-Codeine 100-10mg/5ml Syrup (5 ml) UD PO SCH (21:35)
--- NOTE | 2017-05-04 22:01 | CARD ---
APPROVED REPORT EKG Measurement Heart [id number] <Conclusion> Normal sinus rhythm Normal ECG
--- NOTE | 2017-05-05 02:56 | PN ---
ENDOCRINOLOGY FOLLOWUP NOTE DATE: LOCATION: In room 653. SUBJECTIVE: This is a 51-year-old female who presenting here with severe headaches in both bifrontal and occipital areas with associated generalized body weakness and supervening nausea, dyspepsia, and vomiting and is now being followed closely for metabolic management. She admits to having a previous pituitary tumor resection at the [facility], but was lost to follow up postoperatively with no recent lab testing nor any recent hormonal assay testing as noted. The repeat chemistries here showed BUN of 18, sodium 144, potassium 4.1, chloride 105, CO2 of 27, glucose 107, and creatinine 0.6. Her serum cortisol level is 5.4 with a prolactin level of 21.5, which is actually disproportionate to the degree and the intensity of her headaches and clearly not compatible with this degree of very very mild elevation of the prolactin level as noted. We would recommend an MRI of the pituitary with gadolinium to enhance the pituitary and sella turcica area especially that she had a previous resection of the pituitary tumor at the [facility]. We would also recommend neurological workup for the intensity and frequency of her headaches as noted and mentioned. Once again, the mild degree of elevation of her prolactin level is not consistent with the intensity of her headaches as noted. We will continue the bromocriptine given as 2.5 mg once daily as ordered. We will obtain serial prolactin levels as noted, but for eventual discharge would keep her off the bromocriptine and just follow her hormonal assays every 6 months as noted and would highly recommend the postoperative follow-up at the [facility]. We will follow. Edna Bains MD
[2017-05-05] MEDS: guaiFENesin-Codeine 100-10mg/5ml Syrup (5 ml) UD PO SCH (04:05)
[2017-05-05] MEDS: Nasal Spray(Ocean spray) NAS SCH (04:05)
[2017-05-05 07:45] VITALS: BP 110/66; PULSE 59; TEMP 97.9; O2SAT 98
[2017-05-05] MEDS: Enoxaparin 40 mg Syringe SC SCH (08:49)
--- NOTE | 2017-05-05 11:42 | CP.PCM.DIS ---
Provider - Provider Date of Admission: 05/02/17 21:01 Attending physician: Janice Mccormick MD Primary care physician: None Consults: Endocrinology: Dr. Bains Neurology: Dr. Wright/Dr. Armstrong Time Spent in preparation of Discharge (in minutes): 45 Diagnosis - Discharge Diagnosis (1) Headache Status: Resolved Comment: 51 y/o F with PMHx of Pituitary tumor, surgically removed 2 y/a at [facility] seen for headache similar to previous tumor related headache. CT head could not r/o underlying mass. CT sinus shows chronic sinus changes. Pt started on Ibuprofen, Zofran, Flonase. Endocrinology consult, Dr. Bains. Neurology consult, Dr. Armstrong/Adriana. Pituitary hormones TSH, FT4, T3 all WNL. Prolactin borderline elevated. Brain MRI showed no enlargement of pituitary gland. Per neurology headaches may be due to Sinus disease. Patient to purchase Flonase and Robitussin as outpatient prn for headaches. Patient to f/ u at [facility] on 05/13/[address] Arnold. Patient to have repeat prolactin levels taken in six months Hospital Course - Lab Results Lab Results: Micro Results 05/02/17 17:28 Urine Urine Culture - Final 50-100,000 CFU/ML. MULTIPLE SPECIES. SUGGEST REPEAT SPECIMEN. Most Recent Lab Values WBC 5.8 K/uL (4.8-10.8) 05/02/17 17:00 RBC 4.83 Mil/uL (3.80-5.20) 05/02/17 17:00 Hgb 13.7 g/dL (12.0-16.0) 05/02/17 17:00 Hct 42.0 % (34.0-47.0) 05/02/17 17:00 MCV 87.0 fl (81.0-99.0) 05/02/17 17:00 MCH 28.3 pg (27.0-31.0) 05/02/17 17:00 MCHC 32.6 g/dL (33.0-37.0) L 05/02/17 17:00 RDW 14.4 % (11.5-14.5) 05/02/17 17:00 Plt Count 187 K/uL (130-400) 05/02/17 17:00 MPV 9.7 fl (7.2-11.7) 05/02/17 17:00 Neut % (Auto) 63.6 % (50.0-75.0) 05/02/17 17:00 Lymph % (Auto) 26.8 % (20.0-40.0) 05/02/17 17:00 [place] % (Auto) 6.4 % (0.0-10.0) 05/02/17 17:00 Eos % (Auto) 2.8 % (0.0-4.0) 05/02/17 17:00 Baso % (Auto) 0.4 % (0.0-2.0) 05/02/17 17:00 Neut # (Auto) 3.7 K/uL (1.8-7.0) 05/02/17 17:00 Lymph # (Auto) 1.6 K/uL (1.0-4.3) 05/02/17 17:00 [place] # (Auto) 0.4 K/uL (0.0-0.8) 05/02/17 17:00 Eos # (Auto) 0.2 K/uL (0.0-0.7) 05/02/17 17:00 Baso # (Auto) 0.0 K/uL (0.0-0.2) 05/02/17 17:00 PT 11.5 Seconds (9.8-13.1) 05/02/17 17:00 INR 1.0 (0.9-1.2) 05/02/17 17:00 APTT 34.5 Seconds (25.6-37.1) 05/02/17 17:00 Sodium 144 mmol/l (132-148) 05/02/17 17:00 Potassium 4.1 MMOL/L (3.6-5.0) 05/02/17 17:00 Chloride 105 mmol/L (98-107) 05/02/17 17:00 Carbon Dioxide 27 mmol/L (22-30) 05/02/17 17:00 Anion Gap 16 (10-20) 05/02/17 17:00 BUN 18 mg/dl (7-17) H 05/02/17 17:00 Creatinine 0.6 mg/dl (0.7-1.2) L 05/02/17 17:00 Est GFR ( Amer) > 60 05/02/17 17:00 Est GFR (Non-Af Amer) > 60 05/02/17 17:00 Random Glucose 107 mg/dL (65-105) H 05/02/17 17:00 Calcium 9.8 mg/dL (8.4-10.2) 05/02/17 17:00 Phosphorus 3.8 mg/dl (2.5-4.5) 05/02/17 17:00 Magnesium 2.2 MG/DL (1.6-2.3) 05/02/17 17:00 Total Bilirubin 0.6 mg/dl (0.2-1.3) 05/02/17 17:00 AST 29 U/L (14-36) 05/02/17 17:00 ALT 52 U/L (9-52) D 05/02/17 17:00 Alkaline Phosphatase 72 U/L (38-126) 05/02/17 17:00 Troponin I < 0.0120 ng/mL (0.00-0.120) 05/04/17 10:20 Total Protein 8.4 G/DL (6.3-8.2) H 05/02/17 17:00 Albumin 4.4 g/dL (3.5-5.0) 05/02/17 17:00 Globulin 4.0 gm/dL (2.2-3.9) H 05/02/17 17:00 Albumin/Globulin Ratio 1.1 (1.0-2.1) 05/02/17 17:00 Free T4 0.81 ng/dL (0.78-2.19) 05/02/17 17:00 Thyroxine (T4) 7.22 ug/dl (5.5-11.0) 05/02/17 17:00 Free T3 pg/mL 3.88 pg/mL (2.77-5.27) 05/02/17 17:00 Total T3 1.27 nmol/L (1.49-2.60) L 05/02/17 17:00 TSH 3rd Generation 0.99 mIU/ML (0.46-4.68) 05/02/17 17:00 FSH 3rd Generation 31.1 mIU/mL 05/02/17 17:00 Luteinizing Hormone 16.3 mIU/ml 05/02/17 17:00 Prolactin 21.5 ng/mL (3.0-18.9) H 05/02/17 17:00 Cortisol AM Sample 5.4 ug/dL (4.46-22.7) 05/04/17 05:40 ACTH 12 pg/mL (6-50) 05/02/17 17:00 Urine Color Yellow (YELLOW) 05/02/17 17:28 Urine Clarity Clear (Clear) 05/02/17 17:28 Urine pH 6.0 (5.0-8.0) 05/02/17 17:28 Ur Specific [place] 1.016 (1.003-1.030) 05/02/17 17:28 Urine Protein Negative mg/dL (NEGATIVE) 05/02/17 17:28 Urine Glucose (UA) Neg mg/dL (Normal) 05/02/17 17:28 Urine Ketones Negative mg/dL (NEGATIVE) 05/02/17 17:28 Urine Blood Negative (NEGATIVE) 05/02/17 17:28 Urine Nitrate Negative (NEGATIVE) 05/02/17 17:28 Urine Bilirubin Negative (NEGATIVE) 05/02/17 17:28 Urine Urobilinogen 0.2-1.0 mg/dL (0.2-1.0) 05/02/17 17:28 Ur Leukocyte Esterase [place]/uL (Negative) 05/02/17 17:28 Urine RBC (Auto) 1 /hpf (0-3) 05/02/17 17:28 Urine Microscopic WBC 7 /hpf (0-5) H 05/02/17 17:28 Ur Squamous Epith Cells 1 /hpf (0-5) 05/02/17 17:28 Urine Bacteria Rare (<OCC) 05/02/17 17:28 Urine Opiates Screen Negative (NEGATIVE) 05/02/17 17:28 Urine Methadone Screen Negative (NEGATIVE) 05/02/17 17:28 Ur Barbiturates Screen Negative (NEGATIVE) 05/02/17 17:28 Ur Phencyclidine Scrn Negative (NEGATIVE) 05/02/17 17:28 Ur Amphetamines Screen Negative (NEGATIVE) 05/02/17 17:28 U Benzodiazepines Scrn Negative (NEGATIVE) 05/02/17 17:28 U Oth Cocaine Metabols Negative (NEGATIVE) 05/02/17 17:28 U Cannabinoids Screen Negative (NEGATIVE) 05/02/17 17:28 - Hospital Course Hospital Course: 51 y/o F with PMHx of Pituitary tumor, surgically removed 2 y/a at [facility] seen for headache similar to previous tumor related headache. CT head could not r/o underlying mass. CT sinus shows chronic sinus changes. Pt started on Ibuprofen, Zofran, Flonase. Endocrinology consult, Dr. Bains. Neurology consult, Dr. Armstrong/Adriana. Pituitary hormones TSH, FT4, T3 all WNL. Prolactin borderline elevated. Brain MRI showed no enlargement of pituitary gland. Per neurology headaches may be due to Sinus disease. Chest pain with EKG NSR, troponin normal x 1, likely anxiety related. Xanax x 1 and Motrin x 1 improved symptoms. Patient asymptomatic at this time and stable for DC home Patient to purchase Flonase and Robitussin as outpatient prn for headaches Patient to f/u at [facility] on 05/13/[address] Arnold Patient to have repeat prolactin levels taken in six months - Date & Time of H&P Date of H&P: 05/05/17 Time of H&P: 11:57 Discharge Exam - Head Exam Head Exam: ATRAUMATIC, NORMOCEPHALIC - Eye Exam Eye Exam: EOMI, PERRL Pupil Exam: PERRL - ENT Exam ENT Exam: Mucous Membranes Moist - Respiratory Exam Respiratory Exam: NORMAL BREATHING PATTERN - GI/Abdominal Exam GI & Abdominal Exam: absent: Distended, Firm, Guarding, Tenderness - Rectal Exam Rectal Exam: Deferred - Extremities Exam Extremities exam: normal inspection - Neurological Exam Neurological exam: Alert, Oriented x3 - Psychiatric Exam Psychiatric exam: Normal Affect, Normal Mood - Skin Skin Exam: Intact, Normal Color, Warm Discharge Plan - Follow Up Plan Condition: FAIR Disposition: HOME/ ROUTINE Instructions: Headache, Adult (DC) Additional Instructions: Follow up with your doctors at [facility] upon discharge Purchase Flonase and Robitussin over the counter as needed upon discharge for continued headache/nasal congestion Prolactin levels need to be reassessed in 6 months, please be sure to follow up at that time diamond con dr sheryl dominguez 4 a las 1:20pm en [facility]. Referrals: Pipe Arnold DO [Resident] - 05/13/17 1:20 pm
--- NOTE | 2017-05-06 01:24 | PN ---
DATE: ENDO FOLLOWUP NOTE LOCATION: In room 653. IDENTIFICATION: This is a 51-year-old female with recent admission for intractable migraine-type headaches and underwent neurological evaluation and also endocrine evaluation for a significant history of pituitary tumor resection at the [facility] as noted thereof. Her prolactin levels however noted with this admission were 21.5. Serum cortisol level of 5.4 and human growth hormone level of 0.1, all of which are really recent optimal range except for slight elevation of the prolactin level. She was started on bromocriptine at 2.5 mg just for inpatient management and has discussed with the primary physician, would recommend the serial testing of the prolactin level every 4-6 months on the outpatient and if it remains slightly elevated, then would recommend the follow-up at the [facility] where she had the pituitary tumor resection as noted thereof. An MRI of the brain with contrast was recommended also for this admission. She will follow with outpatient medical doctors for ongoing. We will follow. Edna Bains MD
== END 2017-05-05 13:00 | disposition home or self-care (01) | DRG 153 ==
LOC: H.ER 15:42 → H.ERHOLD 21:01 → H.MEDSURG1 22:00
PROVIDERS: ADMIT Family Medicine Geriatric Medicine; ATTEND Family Medicine Geriatric Medicine
DX: J32.9 Chronic sinusitis, unspecified (principal); F41.9 Anxiety disorder, unspecified; K29.70 Gastritis, unspecified, without bleeding; Z88.0 Allergy status to penicillin; Z88.3 Allergy status to other anti-infective agents; R10.13 Epigastric pain; R20.2 Paresthesia of skin; R07.9 Chest pain, unspecified; R53.1 Weakness